=== PATIENT | female | born 1970 | race Two or more races ===

== ENCOUNTER 2023-05-01 00:37 | Inpatient (IN) | payer BC, OTHER ==
[~2023-05-01] VITALS: Ht 160 cm; Wt 93.6 kg
[2023-05-01 01:24] LABS: Basophils # (auto) 0 10 ^3/uL (0-0.2); Basophils % (auto) 0.1 % (0.0-2.0); Eosinophils # (auto) 0 10 ^3/uL (0-0.8); Hematocrit 44.6 % (36.0-46.0); Hemoglobin 14.9 g/dL (12.2-16.2); Lymphocytes # (auto) 0.8 10 ^3/uL (0.4-5.4); Lymphocytes % (auto) 5.8 % (10.0-50.0); Mean Corpuscular Hemoglobin 32.3 pg (28.0-32.0); Mean Corpuscular Hgb Conc. 33.5 g/dL (32.0-36.0); Mean Corpuscular Volume 96.4 fL (80.0-100.0); Monocytes # (auto) 0.8 10 ^3/uL (0-1.3); Neutrophils # (auto) 12.4 10 ^3/uL (1.6-8.6); Neutrophils % (auto) 88.1 % (37.0-80.0); Red Blood Cells 4.62 10^6/uL (4.0-5.20); Red Cell Distribution Width 13.5 % (11.8-14.3); White Blood Cell 14.1 10^3/uL (4.4-10.8)
[2023-05-01 01:42] LABS: Alanine Aminotransferase 31 U/L (7-40); Albumin 4.8 g/dL (3.2-4.8); Alkaline Phosphatase 154 U/L (46-116); Aspartate Aminotransferase 17 U/L (13-40); BUN/Creatinine Ratio 26.1 (10.0-20.0); Blood Urea Nitrogen 36 mg/dL (9-23); Calcium 10.6 mg/dL (8.7-10.4); Chloride 102 mmol/L (98-107); Glucose 249 mg/dL (74-106); Lipase 41 U/L (12-53); Potassium 4.8 mmol/L (3.5-5.1); Sodium 134 mmol/L (136-145)
[2023-05-01] MEDS ORDERED: HYDROmorphone HCL 2 MG/ML VL/or syr IM ONE (02:30)
[2023-05-01] MEDS ORDERED: ONDANSETRON ODT 4 MG TAB PO ONE (02:30)
[2023-05-01] MEDS ORDERED: MORPHINE SULFATE INJ 2 MG/ml SYRG IV PRN ×2 (04:45→13:00)
[2023-05-01] MEDS ORDERED: ONDANSETRON HCL 4 MG/2 ML VIAL IV PRN (04:45)
[2023-05-01] MEDS ORDERED: DEXTROSE (50%) 50ML SYRG IV PRN (04:45)
[2023-05-01] MEDS ORDERED: ACETAMINOPHEN 325 MG TAB PO PRN (04:45)
[2023-05-01 05:11] LABS: Urine Bacteria NONE SEEN /hpf (None Seen); Urine Blood Negative /uL (Negative); Urine Clarity Clear (Clear); Urine Color Yellow (Yellow); Urine Hyaline Cast FEW /lpf (0 - 2); Urine Protein, UAD TRACE (Negative); Urine Specific Gravity 1.027 (1.001-1.035); Urine WBC 5 /hpf (0 - 5); Urine pH 5.5 (5.0-8.0)
[2023-05-01] MEDS: HYDROcodone-ACET 5/325MG TAB PO PRN ×3 (06:15→20:16)
[2023-05-01] MEDS: metroNIDAZOLE 500MG/100ML 100 ML IV SCH ×3 (06:15→22:59)
[2023-05-01] MEDS: InsuLIN REG 1unit/0.01ml Soln (100units/ml) SC SCH ×3 (06:26→17:43)
[2023-05-01] MEDS: ACCU-CHEK COMFORT CURVE STRIP VI SCH ×3 (06:26→17:39)
[2023-05-01 06:27] VITALS: PULSE 89; RESP 18; O2SAT 96
[2023-05-01 07:30] VITALS: RESP 18; O2SAT 98
[2023-05-01 08:15] VITALS: RESP 18; O2SAT 98
[2023-05-01] MEDS: cefTRIAXone 1GM/50ML D5W 50 ML IV SCH (08:56)
[2023-05-01] MEDS: PANTOPRAZOLE 40 MG TAB PO SCH (10:19)
[2023-05-01] MEDS: amLODIPine BESYLATE 5 MG TAB PO SCH (10:22)
[2023-05-01] MEDS: SODIUM CHLORIDE 0.9% 1,000 ML IV SCH ×2 (11:32→21:32)
[2023-05-01] MEDS ORDERED: CYCL-611 PO (22:49)
[2023-05-01] MEDS ORDERED: GLIP10TA9 PO (22:49)
[2023-05-01] MEDS ORDERED: AMLO1TAB23 PO (22:49)
[2023-05-01] MEDS ORDERED: LISI40TA16 PO (22:49)
[2023-05-01] MEDS ORDERED: DULO1CAP5 PO (22:49)
[2023-05-01] MEDS ORDERED: OMEP20TA (22:49)
[2023-05-01] MEDS ORDERED: METF-372 PO (22:49)
[2023-05-01] MEDS ORDERED: ATOR-47 PO (22:49)
[2023-05-01 22:52] VITALS: BP 94/52; PULSE 74; RESP 15; TEMP 98.6; O2SAT 93
[2023-05-01] MEDS: ATORVASTATIN 20 MG TAB PO SCH (22:59)
[2023-05-02] VITALS (7 sets, daily range): BP systolic 97–123; BP diastolic 53–67; PULSE 70–85; RESP 14–18; TEMP 97.7–98.7; O2SAT 92–96
[2023-05-02] MEDS: ACCU-CHEK COMFORT CURVE STRIP VI SCH ×5 (00:23→23:36)
[2023-05-02] MEDS: InsuLIN REG 1unit/0.01ml Soln (100units/ml) SC SCH ×5 (00:26→23:37)
[2023-05-02] MEDS: metroNIDAZOLE 500MG/100ML 100 ML IV SCH ×3 (05:36→21:56)
[2023-05-02 05:56] LABS: Basophils # (auto) 0 10 ^3/uL (0-0.2); Basophils % (auto) 0.3 % (0.0-2.0); Eosinophils # (auto) 0.1 10 ^3/uL (0-0.8); Eosinophils % (auto) 0.8 % (0.0-7.0); Hematocrit 37.3 % (36.0-46.0); Hemoglobin 12.6 g/dL (12.2-16.2); Lymphocytes # (auto) 1.5 10 ^3/uL (0.4-5.4); Lymphocytes % (auto) 18.6 % (10.0-50.0); Mean Corpuscular Hemoglobin 32.2 pg (28.0-32.0); Mean Corpuscular Hgb Conc. 33.9 g/dL (32.0-36.0); Mean Corpuscular Volume 95.2 fL (80.0-100.0); Monocytes # (auto) 0.6 10 ^3/uL (0-1.3); Monocytes % (auto) 7.8 % (0.0-12.0); Neutrophils # (auto) 5.7 10 ^3/uL (1.6-8.6); Neutrophils % (auto) 72.5 % (37.0-80.0); Red Blood Cells 3.92 10^6/uL (4.0-5.20); Red Cell Distribution Width 13.2 % (11.8-14.3); White Blood Cell 7.8 10^3/uL (4.4-10.8)
[2023-05-02 06:01] LABS: Alanine Aminotransferase 19 U/L (7-40); Albumin 3.8 g/dL (3.2-4.8); Alkaline Phosphatase 91 U/L (46-116); Anion Gap 6.8 (5-15); Aspartate Aminotransferase < 8 U/L (13-40); Bilirubin, Total 0.8 mg/dL (0.2-1.0); Blood Urea Nitrogen 20 mg/dL (9-23); Calcium 8.7 mg/dL (8.7-10.4); Carbon Dioxide 24.2 mmol/L (20-30); Chloride 108 mmol/L (98-107); Glucose 127 mg/dL (74-106); Potassium 3.6 mmol/L (3.5-5.1); Sodium 139 mmol/L (136-145); Total Protein 5.5 g/dL (5.7-8.2)
[2023-05-02] MEDS: SODIUM CHLORIDE 0.9% 1,000 ML IV SCH ×2 (07:10→17:15)
[2023-05-02] MEDS: cefTRIAXone 1GM/50ML D5W 50 ML IV SCH (09:05)
[2023-05-02] MEDS: PANTOPRAZOLE 40 MG TAB PO SCH (09:06)
[2023-05-02] MEDS: HYDROcodone-ACET 5/325MG TAB PO PRN ×2 (09:07→21:59)
[2023-05-02] MEDS: amLODIPine BESYLATE 5 MG TAB PO SCH (10:00)
[2023-05-02] MEDS: ATORVASTATIN 20 MG TAB PO SCH (21:56)
[2023-05-03 05:00] VITALS: BP 125/69; PULSE 74; RESP 19; TEMP 98.4; O2SAT 96
[2023-05-03] MEDS: metroNIDAZOLE 500MG/100ML 100 ML IV SCH ×2 (06:37→12:37)
[2023-05-03] MEDS: HYDROcodone-ACET 5/325MG TAB PO PRN (06:43)
[2023-05-03] MEDS: InsuLIN REG 1unit/0.01ml Soln (100units/ml) SC SCH ×2 (06:47→12:00)
[2023-05-03] MEDS: ACCU-CHEK COMFORT CURVE STRIP VI SCH ×2 (06:48→12:35)
[2023-05-03] MEDS: SODIUM CHLORIDE 0.9% 1,000 ML IV SCH ×2 (06:49→12:35)
[2023-05-03 07:30] VITALS: BP 97/56; TEMP 36.9
[2023-05-03 08:00] VITALS: PULSE 75; RESP 18; O2SAT 94
[2023-05-03 09:09] VITALS: BP 121/67; PULSE 75; RESP 18; TEMP 97.8; O2SAT 94
[2023-05-03] MEDS: cefTRIAXone 1GM/50ML D5W 50 ML IV SCH (09:20)
[2023-05-03] MEDS: PANTOPRAZOLE 40 MG TAB PO SCH (09:20)
[2023-05-03] MEDS: amLODIPine BESYLATE 5 MG TAB PO SCH (09:21)
[2023-05-03] MEDS ORDERED: METR-344 PO (13:26)
[2023-05-03] MEDS ORDERED: LEVO500T91 PO (13:26)
[2023-05-03] MEDS ORDERED: HYDR-4902 PO (13:26)
[2023-05-03 13:34] VITALS: BP 122/69; PULSE 80; RESP 17; TEMP 97.9; O2SAT 94
[2023-05-03 14:57] VITALS: BP 121/67; TEMP 36.6
== END 2023-05-03 15:30 | disposition home or self-care (01) | DRG 872 ==
LOC: ER 00:37 → OVERFLOW 05:23 → WEST WING 22:05
PROVIDERS: ADMIT Nurse Practitioner; ATTEND Nurse Practitioner Acute Care
DX: A41.9 Sepsis, unspecified organism (principal); N17.9 Acute kidney failure, unspecified; N39.0 Urinary tract infection, site not specified; K52.9 Noninfective gastroenteritis and colitis, unspecified; E11.9 Type 2 diabetes mellitus without complications; I10 Essential (primary) hypertension; E66.9 Obesity, unspecified; Z90.710 Acquired absence of both cervix and uterus; Z90.49 Acquired absence of other specified parts of digestive tract; Z68.36 Body mass index [BMI] 36.0-36.9, adult
CPT/HCPCS: 36415; 71045; 74176; 80053; 81001; 82962; 83036; 83690; 85025; 85048; 87040; 87045; 87427; 87493; 93005; 96365; 96372; G0378; J0696; J1815; J3490; Q0162